=== PATIENT | male | born 1945 | race Caucasian/White ===

== ENCOUNTER → 2017-01-12 | Outpatient (CLI) | payer MEDICARE, OTHER ==
[~2017-01-12] MED LIST: CIPR-9 PO; ERGO1CAP10 PO; FINA5TAB2 PO; LOMO2.5T PO; SINE25TA PO; TAMS0.4C4 PO
--- NOTE | 2017-01-12 16:40 | MG ---
cc: VIANEY LUZ M.D. Sex: M DATE OF STUDY: 01/12/2017 TECHNIQUE 17 channel EEG. DESCRIPTION The background rhythm reveals a symmetrical alpha rhythm frequency is about 10 Hz, the amplitude is 30-40 microvolts. During drowsiness there is slowing in the theta range. There are no lateralizing features seen and no epileptiform discharges present. The patient does fall asleep. Sleep spindles are seen as are vertex sharp waves. Hyperventilation was not done. Photic stimulation is normal. INTERPRETATION Normal EEG. MD DAVIAN Morrison/TENA /3:14 PM /4:30 PM
== END ==
LOC: HEEG 08:57
PROVIDERS: ATTEND Psychiatry & Neurology Neurology
DX: R56.9 Unspecified convulsions (principal)
CPT/HCPCS: 95819